=== PATIENT | female | born 1985 | race African-American/Black ===

== ENCOUNTER 2024-02-08 07:44 | Emergency (ER) | payer MEDICAID ==
[~2024-02-08] VITALS: Ht 165.1 cm; Wt 98.0 kg
[~2024-02-08 07:44] MED LIST: PREN-96 PO
[2024-02-08] MEDS: MAALOX PLUS or MAALOX 30 ML PO ONE (08:04)
[2024-02-08] MEDS ORDERED: PANT40TA2 PO (08:04)
[2024-02-08] MEDS: DONNATAL 5ml ORAL Elix (BELLADONNA ALK-PHENOBARB) PO ONE (08:04)
[2024-02-08] MEDS: LIDOCAINE VISCOUS 2% 15ML UD PO ONE (08:05)
[2024-02-08 08:07] LABS: Basophils # (auto) 0 10 ^3/uL (0-0.2); Basophils % (auto) 0.5 % (0.0-2.0); Eosinophils # (auto) 0.1 10 ^3/uL (0-0.8); Eosinophils % (auto) 1.7 % (0.0-7.0); Hematocrit 41.1 % (36.0-46.0); Hemoglobin 13.5 g/dL (12.2-16.2); Lymphocytes # (auto) 1.7 10 ^3/uL (0.4-5.4); Lymphocytes % (auto) 36.2 % (10.0-50.0); Mean Corpuscular Hemoglobin 30.3 pg (28.0-32.0); Mean Corpuscular Hgb Conc. 32.9 g/dL (32.0-36.0); Monocytes # (auto) 0.5 10 ^3/uL (0-1.3); Monocytes % (auto) 10.7 % (0.0-12.0); Neutrophils # (auto) 2.5 10 ^3/uL (1.6-8.6); Neutrophils % (auto) 50.9 % (37.0-80.0); Nucleated Red Blood Cells % 0.2 %; Red Blood Cells 4.47 10^6/uL (4.0-5.20); Red Cell Distribution Width 13.9 % (11.8-14.3); White Blood Cell 4.8 10^3/uL (4.4-10.8)
[2024-02-08 08:22] LABS: Alanine Aminotransferase 18 U/L (7-40); Albumin 3.8 g/dL (3.2-4.8); Alkaline Phosphatase 43 U/L (46-116); Anion Gap 4 (5-15); Aspartate Aminotransferase 15 U/L (13-40); BUN/Creatinine Ratio 16.5 (10.0-20.0); Blood Urea Nitrogen 14 mg/dL (9-23); Calcium 8.9 mg/dL (8.5-10.1); Carbon Dioxide 28 mmol/L (20-30); Chloride 107 mmol/L (98-107); Glucose 79 mg/dL (74-106); Sodium 139 mmol/L (136-145)
[2024-02-08 08:23] LABS: Bilirubin, Total 0.4 mg/dL (0.2-1.0); Total Protein 6.5 g/dL (5.7-8.2)
[2024-02-08 09:00] LABS: Magnesium 1.6 mg/dL (1.6-2.6)
[2024-02-08 09:19] VITALS: BP 129/88; PULSE 61; RESP 18; TEMP 98.1; O2SAT 100
== END 2024-02-08 09:19 | disposition home or self-care (01) ==
LOC: ER 07:44
DX: R07.89 Other chest pain (principal); K29.70 Gastritis, unspecified, without bleeding; Z79.899 Other long term (current) drug therapy
CPT/HCPCS: 36415; 71045; 80053; 83735; 83880; 84484; 85025; 93005

== ENCOUNTER 2024-07-16 20:07 | Emergency (ER) | payer MEDICAID ==
[~2024-07-16] VITALS: Ht 165.1 cm; Wt 104.3 kg
[~2024-07-16 20:07] MED LIST changes: +PANT40TA2 PO
[2024-07-16 20:28] VITALS: BP 126/90; PULSE 76; RESP 14; O2SAT 97
[2024-07-16 21:59] LABS: Basophils # (auto) 0 10 ^3/uL (0-0.2); Basophils % (auto) 0.5 % (0.0-2.0); Eosinophils # (auto) 0.2 10 ^3/uL (0-0.8); Eosinophils % (auto) 2.5 % (0.0-7.0); Hematocrit 41.3 % (36.0-46.0); Hemoglobin 13.5 g/dL (12.2-16.2); Lymphocytes % (auto) 45.8 % (10.0-50.0); Mean Corpuscular Hemoglobin 30.4 pg (28.0-32.0); Mean Corpuscular Hgb Conc. 32.7 g/dL (32.0-36.0); Mean Corpuscular Volume 92.9 fL (80.0-100.0); Monocytes # (auto) 0.9 10 ^3/uL (0-1.3); Monocytes % (auto) 13.1 % (0.0-12.0); Neutrophils # (auto) 2.5 10 ^3/uL (1.6-8.6); Neutrophils % (auto) 38.1 % (37.0-80.0); Nucleated Red Blood Cells % 0.1 %; Platelet Count (auto) 366 10^3/uL (140-450); Red Blood Cells 4.45 10^6/uL (4.0-5.20); Red Cell Distribution Width 13.2 % (11.8-14.3); White Blood Cell 6.6 10^3/uL (4.4-10.8)
[2024-07-16 22:13] LABS: Chloride 110 mmol/L (98-107); Potassium 3.8 mmol/L (3.5-5.1); Sodium 142 mmol/L (136-145)
[2024-07-16 22:14] LABS: Anion Gap 4 (5-15); Carbon Dioxide 28 mmol/L (20-30)
[2024-07-16 22:15] LABS: Calcium 9.4 mg/dL (8.7-10.4)
[2024-07-16 22:19] LABS: BUN/Creatinine Ratio 13.3 (10.0-20.0); Blood Urea Nitrogen 12 mg/dL (9-23); Glucose 94 mg/dL (74-106)
== END 2024-07-16 23:54 | disposition home or self-care (01) ==
LOC: ER 20:07
DX: R51.9 Headache, unspecified (principal); R42 Dizziness and giddiness
CPT/HCPCS: 36415; 70450; 80048; 85025

== ENCOUNTER 2025-02-14 06:21 | Emergency (ER) | payer MEDICAID ==
[~2025-02-14] VITALS: Ht 165.1 cm; Wt 118.5 kg
[2025-02-14 06:46] LABS: Urine Bacteria None Seen /hpf (None Seen)
[2025-02-14 06:51] LABS: Urine Blood Negative /uL (Negative); Urine Clarity Clear (Clear); Urine Color Colorless (Yellow); Urine Protein, UAD Negative (Negative); Urine Specific Gravity 1.012 (1.001-1.035); Urine Squamous Epithelial Cell FEW /hpf (<5); Urine Urobilinogen Normal (Negative)
[2025-02-14 07:22] VITALS: TEMP 97.7
--- NOTE | 2025-02-14 07:40 | ED.PDOC ---
Musculoskeletal HPI Comments 39 year old female presents to the ED with chief complaint of right lower extremity pain and swelling. Patient reports that she has been experiencing right leg pain for the past week, however, since last night she started to experience swelling to the right leg with associated numbness and tingling as well. Patient relays that she is normally very active and does not sit for long periods of time. Patient denies any weakness, chest pain, SOB, dizziness, or headache. Chief Complaint: Lower Extremity Time Seen by MD: 07:37 Primary Care Provider: HERB Salazar Notes: Nurses Notes, Medications, Allergies Allergies: Coded Allergies: No Known Drug Allergy (Verified Allergy, Unknown, 02/14/25) Home Meds Active Scripts Pantoprazole Sodium Sesquihydr (Protonix) 40 Mg Tab, 40 MG PO DAILY for 7 Days, #7 TAB Prov:DOMENICA CHAPA MD 02/08/24 Reported Medications Vit W/ Ferrous Fumara ( One Daily) Daily Tab, 1 TAB PO DAILY, #90 TAB 3 Refills 04/15/16 Information Source: Patient Mode of Arrival: Ambulatory Location: Right Extremity Location: Leg Timing: Days Prehospital treatment: None Severity: Moderate Able to Move Extremity: Yes Bear Weight: Fully Pain: Moderate Mechanism: Spontaneous Circumstances: Spontaneous Onset of Symptoms: Spontaneous Symptoms: Swelling, Pain DVT Risk Factors: NONE Last Tetanus: Unknown Past Medical History PAST MEDICAL HISTORY: PAD Surgical History: Denies all surgeries FLOORING MACHINE FEEDER History: No Pertinent FLOORING MACHINE FEEDER History Family History Family History: Unknown Social History Smoker: Non-Smoker Alcohol: Denies ETOH Use Drugs: Denies Drug Use Lives In: Home Constitutional: denies: chills, diaphoresis, fatigue, fever, malaise, sweats, weakness, others EENTM: denies: blurred vision, double vision, ear bleeding, ear discharge, ear drainage, ear pain, ear ringing, eye pain, eye redness, hearing loss, mouth pain, mouth swelling, nasal discharge, nose bleeding, nose congestion, nose pain, photophobia, tearing, throat pain, throat swelling, voice changes, others Respiratory: denies: cough, hemoptysis, orthopnea, SOB at rest, shortness of breath, SOB with excertion, stridor, wheezing, others Cardiovascular: denies: chest pain, dizzy spells, diaphoresis, Dyspnea on ex ertion, edema, irregular heart beat, left arm pain, lightheadedness, palpitations, PND, syncope, others Gastrointestinal: denies: abdomen distended, abdominal pain, blood streaked bowels, constipated, diarrhea, dysphagia, difficulty swallowing, hematemesis, melena, nausea, poor appetite, poor fluid intake, rectal bleeding, rectal pain, vomiting, others Genitourinary: denies: abnormal vagina bleeding, burning, dyspareunia, dysuria, flank pain, frequency, hematuria, incontinence, pain, , vagina discharge, urgency, others Neurological: reports: numbness, tingling; denies: dizziness, fainting, headache, left sided numbness, left sided weakness, paresthesia, pre-existing deficit, right sided numbness, right sided weakness, seizure, speech problems, tremors, weakness, others Musculoskeletal: reports: others (Right leg pain and swelling); denies: back pain, gout, joint pain, joint swelling, muscle pain, muscle stiffness, neck pain Integumetry: denies: bruises, change in color, change in hair/nails, dryness, laceration, lesions, lumps, rash, wounds, others Allergic/Immunocompromised: denies: Difficulty Healing, Frequent Infections, Hives, Itching, others Hematologic/Lymphatic: denies: anemia, blood clots, easy bleeding, easy bruising, swollen glands, others Endocrine: denies: excessive hunger, excessive sweating, excessive thirst, excessive urination, flushing, intolerance to cold, intolerance to heat, unexplained weight gain, unexplained weight loss, others Psychiatric: denies: anxiety, bipolar disorder, depression, hopeless, panic disorder, schizophrenia, sleepless, suicidal, others All Other Systems: Reviewed and Negative Physical Exam General Appearance: Mild Distress, Obese HEENT: Normal ENT Inspection, PERRL/EOMI Neck: Full Range of Motion, Non-Tender, Normal, Normal Inspection Respiratory: Chest Non-Tender, Lungs Clear, No Accessory Muscle Use, No Respiratory Distress, Normal Breath Sounds Cardiovascular: No Edema, No JVD, No Murmur, No Gallop, Normal Peripheral Pulses, Regular Rate/Rhythm Breast Exam: Deferred Gastrointestinal: No Organomegaly, Non Tender, No Pulsatile Mass, Normal Bowel Sounds, Soft Genitalia: Deferred Pelvic: Deferred Rectal: Deferred Extremities: Leg edema, No calf tenderness, Normal capillary refill, Normal ran ge of motion, Pedal edema, Tender (rt thigh) Musculoskeletal : Apperance: Normal Neurologic: Alert, safe deposit attendant II-XII nml as Tested, No Motor Deficits, Normal Affect, Normal Mood, No Sensory Deficits Cerebellar Function: Normal Reflexes: Normal Skin: Dry, Normal Color, Warm Peripheral Pulses: 1+ carotid (R), 1+ carotid (L) Lymphatic: No Adenopathy Was a procedure done? Was a procedure done?: No Differential Diagnosis EXT Differential Diagnosis: CHF, Deep Vein Thrombosis, Sprain, Strain, Bursitis X-Ray, Labs, Meds, VS Vital Signs Date Time Temp Pulse Resp B/P (MAP) Pulse Ox O2 Delivery O2 Flow Rate FiO2 02/14/25 08:49 126/87 02/14/25 08:44 66 16 126/87 (100) 99 02/14/25 07:22 97.7 64 15 122/97 (105) 98 97.7 02/14/25 06:38 97.8 79 18 136/94 (108) 99 97.8 Lab Test 02/14/25 08:24 02/14/25 06:45 Range/Units White Blood Count 6.6 4.4-10.8 10^3/uL Red Blood Count 4.40 4.0-5.20 10^6/uL Hemoglobin 13.6 12.2-16.2 g/dL Hematocrit 40.3 36.0-46.0 % Mean Corpuscular Volume 91.8 80.0-100.0 fL Mean Corpuscular Hemoglobin 30.9 28.0-32.0 pg Mean Corpuscular Hemoglobin Concent 33.7 32.0-36.0 g/dL Red Cell Distribution Width 13.6 11.8-14.3 % Platelet Count 365 140-450 10^3/uL Mean Platelet Volume 6.9 6.9-10.8 fL Neutrophils (%) (Auto) 44.8 37.0-80.0 % Lymphocytes (%) (Auto) 39.6 10.0-50.0 % Monocytes (%) (Auto) 11.8 0.0-12.0 % Eosinophils (%) (Auto) 3.1 0.0-7.0 % Basophils (%) (Auto) 0.7 0.0-2.0 % Neutrophils # (Auto) 2.9 1.6-8.6 10 ^3/uL Lymphocytes # (Auto) 2.6 0.4-5.4 10 ^3/uL Monocytes # (Auto) 0.8 0-1.3 10 ^3/uL Eosinophils # (Auto) 0.2 0-0.8 10 ^3/uL Basophils # (Auto) 0 0-0.2 10 ^3/uL Nucleated Red Blood Cells 0.1 % Sodium Level 140 136-145 mmol/L Potassium Level 3.6 3.5-5.1 mmol/L Chloride Level 105 98-107 mmol/L Carbon Dioxide Level 28 20-31 mmol/L Anion Gap 7 5-15 Blood Urea Nitrogen Pending Creatinine Pending Glomerular Filtration Rate Calc Pending BUN/Creatinine Ratio Pending Serum Glucose Pending Calcium Level 9.7 8.7-10.4 mg/dL Magnesium Level Pending Urine Color Colorless Yellow Urine Clarity Clear Clear Urine pH 7.0 5.0-9.0 Urine Specific Jackpot 1.012 1.001-1.035 Urine Protein Negative Negative Urine Ketones Negative Negative Urine Blood Negative Negative /uL Urine Nitrite Negative Negative Urine Bilirubin Negative Negative Urine Urobilinogen Normal Negative mg/dL Urine Leukocyte Esterase Negative Negative /uL Urine RBC <1 0 - 4 /hpf Urine Microscopic WBC 0-5 /HPF Urine Squamous Epithelial Cells Few <5 /hpf Urine Bacteria None seen None Seen /hpf Urine Glucose Normal Normal mg/dL Current Medications Medications (Trade) Dose Ordered Sig/Dallin Route Start Time Stop Time Status Last Admin Furosemide (Lasix Tablet) 20 mg ONCE ONCE PO 02/14/25 08:00 02/14/25 08:01 DC 02/14/25 08:49 Rt DVT US: Findings: The common femoral vein demonstrates appropriate compressibility and waveform variability. There is compressibility/patency of the great saphenous vein at the proximal thigh. The femoral vein demonstrates appropriate compressibility and waveform variability. The deep femoral vein demonstrates appropriate compressibility and waveform variability. The popliteal vein demonstrates appropriate compressibility and waveform variability. There is normal compressibility at the tibioperoneal trunk. Impression: No right femoropopliteal venous thrombosis. X-Ray, Labs, Meds, VS Comment Course in the emergency department eventful patient came in complaining of bilateral leg swelling edematous and low urine output blood pressure 136/94 duration one week Urine is negative CBC normal BNP negative Urine negative Ultrasound right leg negative for DVT Patient will be discharged home to follow up with her PCP Images Reviewed?: Images reviewed and evaluated by me Time of 1ST Reevaluation: 08:37 Reevaluation 1ST: Unchanged Time of 2ND Reevaluation: 09:07 Reevaluation 2ND: Improved Consultation: PCP Patient Education/Counseling: Diagnosis, Treatment, Prognosis, Need For Follow Up Family Education/Counseling: Diagnosis, Treatment, Prognosis, Need For Follow Up, No Family Present Departure 1 Departure Time of Disposition: 09:09 Impression: Primary Impression: Fluid retention in legs Additional Impressions: Pain in right thigh Morbid obesity due to excess calories Ruled Out: DVT (deep venous thrombosis) Disposition: HOME / SELF CARE / HOMELESS Condition: Fair Additional Instructions: Local heat and follow up with your PCP e-Prescriptions Diclofenac Potassium (Diclofenac Potassium) 50 Mg Tab 1 TAB PO TIDP for 10 Days, #30 TAB Prov: OLI HINTON MD 02/14/25 Discharged With: Self Critical Care Note Critical Care Time?: No Stability Stability form required: No Heart Score Heart Score: Heart Score Response (Comments) Value History N/A 0 EKG N/A 0 Age <45 0 Risk Factors No known risk factors 0 Troponin N/A 0 Total 0 I personally scribed for OLI HINTON MD ([email or web address]) on 02/14/25 at 07:40. Electronically submitted by Giovanni Carty ([email or web address]). I personally scribed for OLI HINTON MD ([email or web address]) on 02/14/25 at 09:02. Electronically submitted by Giovanni Carty ([email or web address]). OLI HINTON MD Feb 14, 2025 07:40
[2025-02-14 08:44] VITALS: BP 126/87; PULSE 66; RESP 16; O2SAT 99
[2025-02-14 08:44] LABS: Basophils # (auto) 0 10 ^3/uL (0-0.2); Basophils % (auto) 0.7 % (0.0-2.0); Eosinophils # (auto) 0.2 10 ^3/uL (0-0.8); Eosinophils % (auto) 3.1 % (0.0-7.0); Hematocrit 40.3 % (36.0-46.0); Hemoglobin 13.6 g/dL (12.2-16.2); Lymphocytes # (auto) 2.6 10 ^3/uL (0.4-5.4); Lymphocytes % (auto) 39.6 % (10.0-50.0); Mean Corpuscular Hemoglobin 30.9 pg (28.0-32.0); Mean Corpuscular Hgb Conc. 33.7 g/dL (32.0-36.0); Mean Corpuscular Volume 91.8 fL (80.0-100.0); Monocytes # (auto) 0.8 10 ^3/uL (0-1.3); Monocytes % (auto) 11.8 % (0.0-12.0); Neutrophils # (auto) 2.9 10 ^3/uL (1.6-8.6); Neutrophils % (auto) 44.8 % (37.0-80.0); Nucleated Red Blood Cells % 0.1 %; Platelet Count (auto) 365 10^3/uL (140-450); Red Cell Distribution Width 13.6 % (11.8-14.3); White Blood Cell 6.6 10^3/uL (4.4-10.8)
--- NOTE | 2025-02-14 08:44 | DVH ---
Right lower extremity venous duplex Clinical History: dvt Comparison: None Technique: Duplex Doppler evaluation of the deep venous system of the right lower extremity from the common femo ral vein to the popliteal vein including color Doppler and spectral/pulsed waveform analysis was perf ormed. Findings: The common femoral vein demonstrates appropriate compressibility and waveform variability. There is compressibility/patency of the great saphenous vein at the proximal thigh. The femoral vein demonstrates appropriate compressibility and waveform variability. The deep femoral vein demonstrates appropriate compressibility and waveform variability. The popliteal vein demonstrates appropriate compressibility and waveform variability. There is normal compressibility at the tibioperoneal trunk. Impression: No right femoropopliteal venous thrombosis.
[2025-02-14] MEDS: FUROSEMIDE 20 MG TAB PO ONE (08:49)
[2025-02-14 08:52] LABS: Anion Gap 7 (5-15); Carbon Dioxide 28 mmol/L (20-31); Chloride 105 mmol/L (98-107); Potassium 3.6 mmol/L (3.5-5.1); Sodium 140 mmol/L (136-145)
[2025-02-14 08:53] LABS: Calcium 9.7 mg/dL (8.7-10.4)
[2025-02-14 08:57] LABS: Glucose 85 mg/dL (74-106)
[2025-02-14 08:58] LABS: Blood Urea Nitrogen 12 mg/dL (9-23)
[2025-02-14] MEDS ORDERED: DICL50TA2 PO (09:11)
== END 2025-02-14 09:17 | disposition home or self-care (01) ==
LOC: ER 06:21
DX: R60.9 Edema, unspecified (principal); M79.651 Pain in right thigh; E66.01 Morbid (severe) obesity due to excess calories; Z79.899 Other long term (current) drug therapy
CPT/HCPCS: 36415; 80048; 81001; 83735; 85025; 93971